=== PATIENT | female | born 1960 ===

== ENCOUNTER 2019-01-28 15:09 | Emergency (ER) | payer MEDICARE, OTHER ==
[2019-01-28 15:33] VITALS: BMI 32.9
--- NOTE | 2019-01-28 15:46 | ED PDOC ---
Arrival/HPI - General Chief Complaint: Chest Pain Time Seen by Provider: 01/28/19 15:10 Historian: Patient - History of Present Illness Narrative History of Present Illness (Text): 01/28/19 15:45 A 58 year old female presents to the emergency department with a complaint of right sided back pain radiating to the right lower abdomen. She notes that pain began 5 days ago and is worsening. She states that she normally has back pain, for which she takes Percocet but this pain is different from her chronic back pain. She also complains of associated dysuria. Patient notes recurrent UTIs and was recently treated for one. She finished the antibiotics last week. Patient denies fevers, chills, headache, dizziness, chest pain, shortness of breath, dyspnea on exertion, cough, abdominal pain, nausea, vomiting, diarrhea, neck pain,bowel changes, or any other complaint. Time/Duration: Other (5 days) Symptom Onset: Sudden Symptom Course: Unchanged Activities at Onset: Rest, Light Context: Home Past Medical History - Provider Review Nursing Documentation Reviewed: Yes Primary Care Provider: Josr Lazo - Infectious Disease Hx of Infectious Diseases: None - Tetanus Immunization Tetanus Immunization: Unknown - Cardiac Hx Cardiac Disorders: Yes Hx Circulatory Problems: Yes Hx Hypertension: Yes - Neurological HX Cerebrovascular Accident: No Hx Seizures: No - HEENT Other/Comment: Use eyeglasses - Renal Hx Renal Disorder: No - Endocrine/Metabolic Hx Endocrine Disorders: Yes Hx Diabetes Mellitus Type 2: Yes Hx Hyperthyroidism: Yes Hx Hypothyroidism: Yes - Hematological/Oncological Hx AIDS: No - Musculoskeletal/Rheumatological Hx Falls: No - Gastrointestinal Hx Gastrointestinal Disorders: Yes Hx Gastritis: Yes Hx Gastroesophageal Reflux: Yes Hx Liver Failure: Yes (Fatty liver) Hx Pancreatitis: Yes Other/Comment: Hx diverticulosis - Genitourinary/Gynecological Hx Genitourinary Disorders: Yes Hx Hematuria: Yes Hx Incontinence: Yes Hx Uterine Cancer: Yes (Tx with RT, no LAUREN-BSO) Hx Urinary Tract Infection: Yes - Psychiatric Hx Emotional Abuse: No Hx Physical Abuse: No Hx Substance Use: No - Past Surgical History Past Surgical History: Unable to Obtain - Surgical History Hx Section: Yes (x1) Hx Dilation and Curettage: Yes Hx Hysterectomy: Yes Hx Joint Replacement: Yes (Left hip, right knee) Other/Comment: total left hip replacement 10/2012, right knee replacement 12/2016R Knee arthroplasty - Anesthesia Hx Anesthesia: Yes Hx Anesthesia Reactions: No Hx Malignant Hyperthermia: No - Suicidal Assessment Feels Threatened In Home Enviroment: No Family/Social History - Physician Review Nursing Documentation Reviewed: Yes Family/Social History: No Known Family HX Smoking Status: Never Smoked Hx Alcohol Use: No Hx Substance Use: No Hx Substance Use Treatment: No Allergies/Home Meds Allergies/Adverse Reactions: Allergies aztreonam [From Azactam] Allergy (Intermediate, Verified 01/28/19 15:36) ITCHING ceftriaxone sodium [From Rocephin] Allergy (Intermediate, Verified 01/28/19 15:36) ITCHING hydromorphone [From Dilaudid] Allergy (Intermediate, Verified 01/28/19 15:36) ITCHING Home Medications: Home Meds Medication Instructions Recorded Confirmed Gabapentin [Neurontin] 600 mg PO BID 07/14/18 12/17/18 Levothyroxine [Synthroid] 25 mcg PO DAILY 07/14/18 12/17/18 Loratadine [Claritin] 10 mg PO HS 07/14/18 12/17/18 Pantoprazole [Protonix EC Tab] 40 mg PO BID 07/14/18 12/17/18 SITagliptin [Januvia] 100 mg PO DAILY 07/14/18 12/17/18 Zolpidem [Ambien] 5 mg PO HS 07/14/18 12/17/18 Acetaminophen/Oxycodone Hydr 1 tab PO Q8H PRN 11/15/18 12/17/18 [Percocet 10/325 mg Tab] Enalapril Maleate [Vasotec] 1 tab PO DAILY 11/15/18 12/17/18 Review of Systems - Physician Review All systems were reviewed & negative as marked: Yes - Review of Systems Constitutional: absent: Fevers Respiratory: absent: SOB, Cough Cardiovascular: absent: Chest Pain, ARMAS Gastrointestinal: absent: Abdominal Pain, Stool Changes, Diarrhea, Nausea, Vomiting Genitourinary Female: Dysuria Musculoskeletal: Back Pain. absent: Neck Pain Neurological: absent: Headache, Dizziness Physical Exam Vital Signs Reviewed: Yes Temperature: Afebrile Blood Pressure: Normal Pulse: Regular Respiratory Rate: Normal Appearance: Positive for: Well-Appearing, Non-Toxic, Comfortable Pain Distress: None Mental Status: Positive for: Alert and Oriented X 3 - Systems Exam Head: Present: Atraumatic, Normocephalic Pupils: Present: PERRL Extroacular Muscles: Present: EOMI Conjunctiva: Present: Normal Mouth: Present: Moist Mucous Membranes Neck: Present: Normal Range of Motion Respiratory/Chest: Present: Clear to Auscultation, Good Air Exchange. No: Respiratory Distress, Accessory Muscle Use Cardiovascular: Present: Regular Rate and Rhythm, Normal S1, S2. No: Murmurs Abdomen: Present: Tenderness (suprapubic tenderness). No: Distention, Peritoneal Signs Back: Present: Other (right lower back tenderness) Upper Extremity: Present: Normal Inspection. No: Cyanosis, Edema Lower Extremity: Present: Normal Inspection. No: Edema Neurological: Present: GCS=15, CN II-XII Intact, Speech Normal Skin: Present: Warm, Dry, Normal Color. No: Rashes Psychiatric: Present: Alert, Oriented x 3, Normal Insight, Normal Concentration Medical Decision Making ED Course and Treatment: 01/28/19 15:45 Impression: A 58 year old female presents to the emergency department with a complaint of right lower back pain radiating to the right suprapubic area. Plan: -- ABD/Pelvis CT -- EKG -- Labs -- Toradol -- Oxycodone -- IV Fluids -- Urine Culture -- Urinalysis -- Reassess and disposition Prior Visits: Notes and results from previous visits were reviewed. Progress Notes: 01/28/19 16:01: As per [employer], patient recieved prescription for Percoet 10/325 on 01/20. - Scribe Statement The provider has reviewed the documentation as recorded by the Rosalindibshameka Bernstein Provider Scribe Attestation: All medical record entries made by the Scribe were at my direction and personally dictated by me. I have reviewed the chart and agree that the record accurately reflects my personal performance of the history, physical exam, medical decision making, and the department course for this patient. I have also personally directed, reviewed, and agree with the discharge instructions and disposition. Disposition/Present on Arrival - Present on Arrival Any Indicators Present on Arrival: No History of DVT/PE: No History of Uncontrolled Diabetes: No Urinary Catheter: No History of Decub. Ulcer: No History Surgical Site Infection Following: None - Disposition Have Diagnosis and Disposition been Completed?: Yes Diagnosis: Chronic back pain Disposition: HOME/ ROUTINE Disposition Time: 19:00 Patient Problems: Current Active Problems Problem Status Onset Chronic back pain Chronic Condition: IMPROVED Discharge Instructions (ExitCare): Low Back Pain (DC) Additional Instructions: DARY MENDOZA, thank you for letting us take care of you today. The emergency medical care you received today was directed at your acute symptoms. If you were prescribed any medication, please fill it and take as directed. It may take several days for your symptoms to resolve. Return to the Emergency Department if your symptoms worsen, do not improve, or if you have any other problems. Please contact your doctor or call one of the physicians/clinics you have been referred to that are listed on the Patient Visit Information form that is included in your discharge packet. Bring any paperwork you were given at discharge with you along with any medications you are taking to your follow up visit. Our treatment cannot replace ongoing medical care by a primary care provider outside of the emergency department. Thank you for allowing the [facility] team to be part of your care today. Continue taking the pain medication you have at home and follow up with your pain management doctor tomorrow as scheduled. Referrals: [facility] Natasha Reliban, [Non-Staff] - Follow up with primary Forms: [email or web address] (Kiswahili)
[2019-01-28 15:54] VITALS: TEMP 97.8
[2019-01-28] MEDS ORDERED: Sodium Chloride 0.9% 1,000 ML IV STA (16:03)
[2019-01-28] MEDS ORDERED: oxyCODONE 10 mg Immediate Release Tab PO STA ×2 (16:10→18:59)
[2019-01-28 17:04] LABS: BASO # 0.01 K/mm3 (0.0-2.0); BASO % 0.2 % (0.0-3.0); EOS # 0.1 (0.0-0.7); EOS % 2.5 % (1.5-5.0); LYMPH # 1.7 (1.2-3.4); LYMPH % 32.6 % (22.0-35.0); MEAN CELL VOLUME 86.5 fl (80.0-105.0); MEAN CORPUSCULAR HGB CONC 32.4 g/dl (31.0-37.0); MEAN PLATELET VOLUME 10.1 fl (7.0-11.0); MONO # 0.4 (0.1-0.6); MONO % 7.7 % (1.0-6.0); RBC 3.93 10^6/uL (3.5-6.1); WHITE BLOOD COUNT 5.3 10^3/uL (4.5-11.0)
[2019-01-28 17:41] LABS: URINE APPEARANCE CLEAR (CLEAR); URINE BILIRUBIN NEGATIVE (NEGATIVE); URINE BLOOD NEGATIVE (NEGATIVE); URINE COLOR YELLOW (YELLOW); URINE GLUCOSE (UA) NEGATIVE (NEGATIVE); URINE LEUKOCYTE ESTERASE SMALL Leu/uL (NEGATIVE); URINE PROTEIN NEGATIVE mg/dL (<30 mg/dL); URINE UROBILINOGEN 0.2 E.U./dL (<1 E.U./dL)
[2019-01-28 17:53] LABS: URINE BACTERIA SMALL /hpf; URINE EPITHELIAL CELLS 0 - 2 /hpf (0-5)
[2019-01-28 17:58] LABS: ALB/GLOB RATIO 1.2 (1.1-1.8); ALBUMIN 4.2 g/dL (3.0-4.8); ALT/SGPT 15 U/L (7-56); AST/SGOT 29 U/L (14-36); BLOOD UREA NITROGEN 16 mg/dL (7-21); CALCIUM 9.2 mg/dL (8.4-10.5); GFR NON-AFRICAN AMERICAN > 60; LIPASE 172 U/L (23-300)
[2019-01-28 18:09] LABS: TROPONIN I < 0.01 ng/mL
--- NOTE | 2019-01-28 18:55 | CT ---
Date of service: 01/28/2019 PROCEDURE: CT Abdomen and Pelvis without intravenous contrast HISTORY: right flank pain with dysuria COMPARISON: 08/19/2014. CT abdomen and pelvis TECHNIQUE: Unenhanced. Neither IV nor oral contrast administered Radiation dose: Total exam DLP = 1010.79 mGy-cm. This CT exam was performed using one or more of the following dose reduction techniques: Automated exposure control, adjustment of the mA and/or kV according to patient size, and/or use of iterative reconstruction technique. FINDINGS: LOWER THORAX: Unremarkable. LIVER: Unremarkable. No gross lesion or ductal dilatation. GALLBLADDER AND BILE DUCTS: Unremarkable. PANCREAS: Unremarkable. No gross lesion or ductal dilatation. SPLEEN: Unremarkable. ADRENALS: Unremarkable. No mass. KIDNEYS AND URETERS: Unremarkable. No hydronephrosis. No solid mass. VASCULATURE: Unremarkable. No aortic aneurysm. No atherosclerotic calcification or mural plaque present. BOWEL: Unremarkable. No obstruction. No gross mural thickening. Postoperative findings related to gastric sleeve procedure. APPENDIX: No abnormalities to suggest acute appendicitis. No right lower quadrant inflammatory processes identified. PERITONEUM: Unremarkable. No free fluid. No free air. LYMPH NODES: Unremarkable. No enlarged lymph nodes. BLADDER: Unremarkable as visualized. Streak artifact from the left hip prosthesis precludes optimal assessment of the urinary bladder. REPRODUCTIVE: Unremarkable. BONES: No acute fracture. Scoliosis, secondary degenerative change at multiple levels. OTHER FINDINGS: None. IMPRESSION: No acute or significant findings related to/ accounting for the clinical presentation. Additional benign and/or incidental findings described above. No significant interval change compared to the prior examination(s).
[2019-01-28] MEDS ORDERED: Lidocaine 5% Patch TD STA (19:11)
[2019-01-28 19:22] VITALS: BP 125/78; PULSE 71; RESP 17; O2SAT 99
--- NOTE | 2019-01-28 20:48 | CARD ---
APPROVED REPORT Date of service: 01/28/2019 EKG Measurement Heart [id number] <Conclusion> Normal sinus rhythm Normal ECG
[2019-01-29] MEDS ORDERED: Lidocaine 5% Patch TD SCH (10:00)
== END 2019-01-28 19:26 | disposition home or self-care (01) ==
LOC: ED 15:09
DX: M54.9 Dorsalgia, unspecified (principal); G89.29 Other chronic pain; I10 Essential (primary) hypertension; E11.9 Type 2 diabetes mellitus without complications; K21.9 Gastro-esophageal reflux disease without esophagitis; Z85.42 Personal history of malignant neoplasm of other parts of uterus
CPT/HCPCS: 74176; 80053; 81001; 82550; 83615; 83690; 83735; 84484; 85025; 87086; 93005; 96374; 99283; J1885; J7030